=== PATIENT | male | born 1970 | race Caucasian/White ===

== ENCOUNTER 2016-11-01 21:39 | Inpatient (IN) | payer SELFPAY ==
[~2016-11-01] VITALS: Ht 185.4 cm; Wt 99.8 kg
--- NOTE | ~2016-11-01 | PROC NOTE ---
[place], [place] PROCEDURE NOTE NAME: [facility] #: [id number] UNIT #: [id number] ROOM: 529 DOCTOR: ALEJANDRO LYNN MD BIRTHDATE: [birth year] DOS: 11/02/2016 PREOPERATIVE DIAGNOSIS: Right axillary abscess. POSTOPERATIVE DIAGNOSIS: Right axillary abscess. PROCEDURE: Incision and drainage, right axillary abscess. SURGEON: Alejandro Lynn MD STOREKEEPER HELPER: None. ANESTHESIA: Local. INDICATIONS: This is a 46-year-old gentleman admitted with right axillary abscess and cellulitis. DESCRIPTION OF PROCEDURE: A bedside incision and drainage was decided to be performed. Written consent was obtained and the parts were then cleaned and draped in the usual sterile fashion. Local anesthesia (1% plain lidocaine) was injected and a small incision was made in the most fluctuant part of the abscess. Small amount of pus was drained and sent for culture and sensitivity. Thereafter, the abscess cavity was packed with quarter inch iodoform and a dressing was placed. There were no complications. Dr. Alejandro Lynn, the attending surgeon, was present throughout the operating case. Alejandro Lynn MD CM:PROCNOTE:PROCEDURE NOTE [id number] ALEJANDRO LYNN MD
[~2016-11-01 21:39] MED LIST: AUGMENTIN 875 M1 TAB PO; BIAXIN500 MG PO; CLARITIN10 MG PO; FLEXERIL10 MG PO; MEDROL DOSEPAK4 MG PO; MOTRIN600 MG PO; MOTRIN800 MG PO; NKHM; PERCOCET 325 MG1 TA2 PO; PREDNICOT10 MG PO; ROBITUSSIN-AC480 ML PO; TRAMADOL HCL50 MG PO; ULTRAM50 MG PO; VIBRAMYCIN100 MG PO; VICODIN 500 MG-1 TAB PO; ZITHROMAX Z PA250 MG PO; [UNRECOGNIZED DRUG - REMARK]
[2016-11-01 21:45] VITALS: BP 154/97
[2016-11-01 22:13] LABS: BASO # 0.1 10*3/uL (0.0-0.1); BASO % 0.5 % (0.0-1.0); EOS # 0.2 10*3/uL (0.0-0.4); EOS % 1.5 % (1.0-4.0); HEMATOCRIT 46.4 % (42.0-52.0); HEMOGLOBIN 15.6 g/dl (14.0-18.0); IG # 0.1 10*3/uL (0.0-0.1); LYMPH # 1.8 10*3/uL (1.3-4.4); LYMPH % 11.7 % (27.0-41.0); MEAN CELL VOLUME 92.2 fl (80.0-94.0); MEAN CORPUSCULAR HGB CONC 33.6 g/dl (33.0-37.0); MEAN PLATELET VOLUME 10.1 fl (9.6-12.3); MONO # 1.5 10*3/uL (0.1-1.0); MONO % 9.9 % (3.0-9.0); NEUT # 11.3 10*3/uL (2.3-7.9); NEUT % 75.9 % (47.0-73.0); PLATELET COUNT AUTOMATED 254 10*3/uL (130-400); RED BLOOD COUNT 5.03 10*6/uL (4.50-5.90); RED CELL DISTRI WIDTH 11.9 % (0-14.5); WHITE BLOOD COUNT 14.9 10*3/uL (4.8-10.8)
[2016-11-01 22:24] LABS: BUN 17 mg/dl (7-24); C-REACTIVE PROTEIN 6.79 MG/DL (0-0.3); CARBON DIOXIDE 25 mmol/L (21-32); CHLORIDE 106 mmol/L (98-107); EST GLOM FILT AFRICAN AMERICAN > 60 ml/min; GLUCOSE 105 mg/dL (65-99); POTASSIUM 4.1 mmol/L (3.5-5.1); SODIUM 141 mmol/L (136-145)
[2016-11-02] VITALS (7 sets, daily range): BP systolic 130–179; BP diastolic 67–92
[2016-11-02 06:25] LABS: HEMATOCRIT 43.7 % (42.0-52.0); HEMOGLOBIN 14.7 g/dl (14.0-18.0); MEAN CELL VOLUME 91.8 fl (80.0-94.0); MEAN CORPUSCULAR HGB 30.9 pg (27.0-31.0); MEAN CORPUSCULAR HGB CONC 33.6 g/dl (33.0-37.0); MEAN PLATELET VOLUME 10.6 fl (9.6-12.3); PLATELET COUNT AUTOMATED 234 10*3/uL (130-400); RED BLOOD COUNT 4.76 10*6/uL (4.50-5.90); RED CELL DISTRI WIDTH 11.9 % (0-14.5); WHITE BLOOD COUNT 15.1 10*3/uL (4.8-10.8)
[2016-11-02 06:51] LABS: BUN 13 mg/dl (7-24); CARBON DIOXIDE 25 mmol/L (21-32); CHLORIDE 107 mmol/L (98-107); EST GLOM FILT AFRICAN AMERICAN > 60 ml/min; GLUCOSE 103 mg/dL (65-99); POTASSIUM 3.7 mmol/L (3.5-5.1); SODIUM 140 mmol/L (136-145)
[2016-11-02 06:52] LABS: EOSINOPHIL # 0.2 10*3/uL (0-0.4); EOSINOPHILS 1 % (1-4); LYMPHOCYTE # 1.8 10*3/uL (1.3-4.4); MONOCYTE # 1.8 10*3/uL (0.1-1.0); NEUTROPHIL # 11.3 10*3/uL (2.3-7.9); NEUTROPHILS 75 % (47-73); PLATELET SUFFICIENCY NORMAL (NORMAL); TOTAL CELLS COUNTED 100 #CELLS
[2016-11-03] VITALS: BP 120/71
[2016-11-03 08:00] VITALS: BP 124/76
[2016-11-03 12:00] VITALS: BP 132/67
[2016-11-03] MEDS ORDERED: BACTRIM DS 8001 TA1 PO (14:11)
== END 2016-11-03 15:20 | disposition home or self-care (01) | DRG 872 ==
LOC: ED 21:39 → EDHOLD 22:48 → 5E 23:01
PROVIDERS: Emergency Medicine Emergency Medical Services; Internal Medicine
PROC: 0H9BXZZ Drainage of Right Upper Arm Skin, External Approach (ICD-10-PCS; principal; 2016-11-02)
DX: A41.9 Sepsis, unspecified organism (principal); L03.111 Cellulitis of right axilla; Z71.6 Tobacco abuse counseling; Z82.49 Family history of ischemic heart disease and other diseases of the circulatory system

== ENCOUNTER 2017-06-01 15:27 | Emergency (ER) | payer OTHER ==
[~2017-06-01] VITALS: Ht 182.8 cm; Wt 99.8 kg
[~2017-06-01 15:27] MED LIST changes: +BACTRIM DS 8001 TA1 PO
[2017-06-01] MEDS ORDERED: SEPTDS PO (15:46)
[2017-06-01] MEDS ORDERED: CEPHALEXIN500 M1 PO (15:46)
== END 2017-06-01 15:49 | disposition home or self-care (01) ==
LOC: ED 15:27
DX: L02.11 Cutaneous abscess of neck (principal); F17.200 Nicotine dependence, unspecified, uncomplicated

== ENCOUNTER 2023-10-06 15:56 | Emergency (ER) | payer OTHER ==
[~2023-10-06] VITALS: Wt 104.3 kg
[~2023-10-06 15:56] MED LIST changes: +CEPHALEXIN500 M1 PO; +SEPTDS PO
[2023-10-06] MEDS ORDERED: Acetaminophen/Hydrocodone 5 MG/325 MG TABLET PO ONE (16:30)
[2023-10-06] MEDS ORDERED: CYCLOBENZAPRINE10 MG PO (18:20)
== END 2023-10-06 18:28 | disposition home or self-care (01) ==
LOC: ED 15:56
DX: S39.012A Strain of muscle, fascia and tendon of lower back, initial encounter (principal); F17.200 Nicotine dependence, unspecified, uncomplicated; X50.0XXA Overexertion from strenuous movement or load, initial encounter; Y93.89 Activity, other specified; Y92.89 Other specified places as the place of occurrence of the external cause; Y99.8 Other external cause status

== ENCOUNTER 2024-10-17 17:44 | Emergency (ER) | payer SELFPAY ==
[~2024-10-17] VITALS: Ht 177.8 cm; Wt 104.3 kg
[~2024-10-17 17:44] MED LIST changes: +CYCLOBENZAPRINE10 MG PO
[2024-10-17 18:24] LABS: BASO # 0.1 10*3/uL (0.0-0.1); BASO % 0.9 % (0.0-1.0); EOS # 0.3 10*3/uL (0.0-0.4); EOS % 4.2 % (1.0-4.0); HEMATOCRIT 51.5 % (42.0-52.0); MEAN CELL VOLUME 95.7 fl (80.0-94.0); MEAN CORPUSCULAR HGB 30.5 pg (27.0-31.0); MEAN CORPUSCULAR HGB CONC 31.8 g/dl (33.0-37.0); MEAN PLATELET VOLUME 10.1 fl (9.6-12.3); MONO # 0.7 10*3/uL (0.1-1.0); NEUT # 5.3 10*3/uL (2.3-7.9); NEUT % 64.7 % (47.0-73.0); PLATELET COUNT AUTOMATED 303 10*3/uL (130-400); RED BLOOD COUNT 5.38 10*6/uL (4.50-5.90); RED CELL DISTRI WIDTH 11.9 % (0-14.5); WHITE BLOOD COUNT 8.1 10*3/uL (4.8-10.8)
[2024-10-17] MEDS ORDERED: Albuterol Sulf/Ipratropium 3 ML VIAL NEB ONE (18:35)
[2024-10-17] MEDS ORDERED: methylPREDNISolone sod succ 125 MG VIAL IM ONE (18:35)
[2024-10-17 19:16] LABS: BUN 14 mg/dl (9-23); CHLORIDE 105 mmol/L (98-107); POTASSIUM 4.5 mmol/L (3.4-5.1)
[2024-10-17] MEDS ORDERED: PREDNISONE20 M1 PO (20:31)
[2024-10-17] MEDS ORDERED: AVPAK AZITHROM250 M1 PO (20:31)
[2024-10-17] MEDS ORDERED: AZITHROMYCIN 250 MG TAB PO ONE (20:35)
== END 2024-10-17 20:36 | disposition home or self-care (01) ==
LOC: ED 17:44
PROVIDERS: Nurse Practitioner Family
DX: J40 Bronchitis, not specified as acute or chronic (principal); F17.200 Nicotine dependence, unspecified, uncomplicated; Z79.899 Other long term (current) drug therapy